=== PATIENT | male | born 1975 | race Caucasian/White ===

== ENCOUNTER 2018-01-11 20:50 | Emergency (ER) | payer OTHER ==
[~2018-01-11] VITALS: Ht 180.3 cm; Wt 110.0 kg
[~2018-01-11 20:50] MED LIST: FLEXERIL10 MG PO; FLOMAX0.4 M1 PO; FLOMAX0.4 MG PO; MOTRIN600 MG PO; NAPROSYN500 MG PO; NAPROXEN500 MG PO; NOHOMEMEDS; OXAYDO5 MG PO; PERCOCET 5/31 TABLET PO; SUBOXONE 8 MG-1 EAC2; TORADOL10 MG PO; VALIUM5 MG PO; VENTOLIN HFA18 GM; VICODIN,LORT1 TABLET PO; ZOFRAN ODT4 MG PO
[2018-01-11 21:43] LABS: APPEARANCE CLEAR ((CLEAR)); BILIRUBIN NEGATIVE; BLOOD LARGE; COLOR YELLOW ((YELLOW)); GLUCOSE (STRIP) NEGATIVE; KETONES NEGATIVE; LEUKOCYTES NEGATIVE; NITRITE NEGATIVE; PROTEIN (STRIP) NEGATIVE; SPECIFIC GRAVITY 1.016 (1.000-1.030); UROBILINOGEN 0.2 MG/DL (0.2-1.0)
[2018-01-11 21:47] LABS: BACTERIA RARE /HPF; EPITHELIAL CELLS NONE SEEN /HPF; MUCUS TRACE /LPF; RED BLOOD CELLS TNTC /HPF (0-5); WHITE BLOOD CELLS 0-5 /HPF (0-5)
[2018-01-11 21:52] LABS: BASOPHIL (%) 0.8 % (0-1); BASOPHIL COUNT 0.1 K/uL (0-0.1); EOSINOPHIL (%) 1.4 % (0-5); EOSINOPHIL COUNT 0.1 K/uL (0-0.3); HEMATOCRIT 41.1 % (38.0-50.0); IMMATURE GRANULOCYTE (%) 0.8 % (0.0-0.7); LYMPHOCYTE (%) 34.8 % (15-42); LYMPHOCYTE COUNT 2.2 K/uL (1.0-2.8); MCH 28.1 PG (29.0-34.0); MCHC 34.1 G/DL (30.0-36.0); MCV 82.4 FL (86-99); MONOCYTE (%) 6.6 % (3-12); MONOCYTE COUNT 0.4 K/uL (0-0.8); NEUTROPHIL (%) 55.6 % (45-76); NEUTROPHIL COUNT 3.5 K/uL (1.8-6.4); PLATELET COUNT 235 K/uL (156-360); RBC DIS.WIDTH-CV 12.9 % (11.8-14.6); RBC DIS.WIDTH-SD 38.5 % (39-53); RED BLOOD COUNT 4.99 M/uL (4.00-5.50); WHITE BLOOD COUNT 6.2 K/uL (4.1-10.2)
[2018-01-11 22:11] LABS: ALBUMIN 4.3 g/dL (3.2-4.8); CHLORIDE 105 mEq/L (99-109); POTASSIUM 4.3 mEq/L (3.7-5.4); SODIUM 139 mEq/L (136-147)
[2018-01-11 22:14] LABS: GLUCOSE 117 mg/dL (70-99); TOTAL PROTEIN 7.7 g/dL (6.4-8.3)
[2018-01-11 22:16] LABS: TOTAL BILIRUBIN 0.7 mg/dL (0.0-1.0)
[2018-01-11 22:17] LABS: ALKALINE PHOSPHATASE 90 IU/L (3-129)
[2018-01-11 22:18] LABS: CREATININE 1.2 mg/dL (0.6-1.3); GFR ESTIMATE (CALCULATED) > 59 mL/min/ (58.99-99999)
[2018-01-11 22:19] LABS: AST (GOT) 19 IU/L (2-34); DIRECT BILIRUBIN 0.2 mg/dL (0.0-0.3); UREA NITROGEN (BUN) 17 mg/dL (9-23)
[2018-01-11 22:20] LABS: ALT (GPT) 23 IU/L (3-49)
[2018-01-11 22:21] LABS: LIPASE 42 U/L (1.0-51.0)
[2018-01-11] MEDS ORDERED: NORCO 7.5/321 TABLET PO (22:48)
[2018-01-11] MEDS ORDERED: ZOFRAN ODT4 MG PO (22:48)
[2018-01-11] MEDS ORDERED: FLOMAX0.4 MG PO (22:48)
[2018-01-11] MEDS ORDERED: MOTRIN800 MG PO (22:48)
[2018-01-11 23:10] VITALS: BP 114/78
== END 2018-01-11 23:11 | disposition home or self-care (01) ==
LOC: EME 20:50
PROVIDERS: Physician Assistant
DX: N13.2 Hydronephrosis with renal and ureteral calculous obstruction (principal); J45.909 Unspecified asthma, uncomplicated; Z87.442 Personal history of urinary calculi; Z87.19 Personal history of other diseases of the digestive system; Z87.891 Personal history of nicotine dependence; Z88.0 Allergy status to penicillin
CPT/HCPCS: 74176; 80048; 80076; 81003; 83690; 85025; 99281; 99284; J1885; J3010